=== PATIENT | male | born 1990 | race Caucasian/White ===

== ENCOUNTER → 2025-01-31 | Day surgery (SDC) | payer OTHER, BC | END | disposition home or self-care (01) | LOC: JRADIR 09:09 | PROVIDERS: ATTEND Orthopaedic Surgery | PROC: BP39Y0Z Magnetic Resonance Imaging (MRI) of Left Shoulder using Other Contrast, Unenhanced and Enhanced (ICD-10-PCS; principal; 2025-01-31) | DX: M24.412 Recurrent dislocation, left shoulder (principal) | CPT/HCPCS: 23350; 73040-TC-FY; 73222-TC ==